=== PATIENT | male | born 1995 | race Caucasian/White ===

== ENCOUNTER 2018-03-23 22:02 | Emergency (ER) | payer OTHER ==
[2018-03-23 22:10] VITALS: BP 136/74
--- NOTE | 2018-03-23 22:26 | EDPHY ---
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 He reports that he felt some pain but continued to try to play. He started to bleed on his scalp so the referee made him come out of the game. He applied direct pressure and the bleeding stopped. Denies LOC/ head injury/neck pain/dizziness/nausea/vomiting/amnesia. No prior history of concussion. Drove himself to the emergency room. Ambulatory without deficits. Reports tetanus is current. Modifying Factors: See above Comment: ROS: see HPI Constitutional: No fever, no chills, no weight loss Eyes: No blurred vision Respiratory: No shortness of breath, no cough Cardiovascular: No chest pain Gastrointestinal: No nausea, no vomiting no diarrhea Genitourinary: No dysuria Extremities: No myalgias Neurologic: No weakness, no numbness Skin: No rashes Hematologic: No bruising, no bleeding MEDICAL/SURGICAL/SOCIAL HISTORY: Medical history: Generally healthy. Does not take any regular medications. Surgical history: Denies Social history: Local [employer] student. Family history noncontributory. Denies recreational drug use. CONSTITUTIONAL: Polite and cooperative, young adult white male, awake and alert , no obvious distress HEENT: 1.5 cm, linear, simple, deep laceration on the left parietal scalp, normocephalic, PERRL, EOMI. no globe entrapment, no raccoon eyes. no Hernández signs.Tympanic membranes clear. No tympanic membrane rupture. Nares patent; no septal hematoma. Oropharynx clear, no exudate and moist pink mucosa. No malocclusion. no dental trauma. Airway patent. No lymphadenopathy. NECK: supple, no midline tenderness, flexion 45 degrees, extension 45 degrees, right and left lateral flexion 45 degrees. No meningismus. Cardiovascular: Normal S1/S2, regular rate, regular rhythm, without murmur rub or gallop. PULMONARY/CHEST: Symmetrical and nontender. no crepitus. Clear to auscultation bilaterally. Good air movement. No accessory muscle usage. ABDOMEN: Soft, nondistended, nontender, no ecchymosis, no rebound, no guarding , no peritoneal signs, no masses or organomegaly. No CVAT. PELVIC: no pain with rocking; bilateral hips flexion 125 degrees, extension 30 degrees, with no pain internal rotation and no pain external rotation. BACK: No midline tenderness, no paraspinous spasm, deep tendon reflexes 2/2, no pain with straight leg raise EXTREMITIES: 2/2 pulses, no deformities, no clubbing, no cyanosis or edema. NEUROLOGICAL: no focal neuro deficits. GCS 15. SKIN: Warm and dry, no erythema. no rash. Good capillary refill. Source: Patient Exam Limitations: No limitations - Personal History Current Tetanus/Diphtheria Vaccine: Yes Current Tetanus Diphtheria and Acellular Pertussis (TDAP): Yes Tetanus Vaccine Date: 2013 - Medical/Surgical History Hx Asthma: No Hx Chronic Respiratory Disease: No Hx Diabetes: No Hx Cardiac Disease: No Hx Renal Disease: No Hx Cirrhosis: No Hx Alcoholism: No Hx HIV/AIDS: No Hx Splenectomy or Spleen Trauma: No Other PMH: bladder surgery - Social History Smoking Status: Current some day smoker Constitutional: Initial Vital Signs Temperature (C) 37.1 C 03/23/18 22:08 Heart Rate 84 03/23/18 22:08 Respiratory Rate 16 03/23/18 22:08 Blood Pressure 136/74 H 03/23/18 22:08 O2 Sat (%) 93 03/23/18 22:08 O2 Delivery Mode Room Air Allergies/Adverse Reactions: No Known Allergies Allergy (Verified 03/23/18 22:10) Home Medications: Medication Instructions Recorded NK [No Known Home Meds] 03/23/18 Medical Decision Making Procedures: Procedure: Laceration repair. Verbal consent was obtained from the patient. The 2.5 cm, linear, simple, deep , left parietal scalp was anesthetized in the usual fashion using 4 mL of 0.5% bupivacaine with epinephrine. The wound was irrigated, draped and explored to its base with a gloved finger. There were no deep structures involved. No tendon injury was identified. The wound was repaired with #4 ann marie. Good hemostasis achieved and patient tolerated procedure well. Bacitracin applied. The procedure was performed by myself. ED Course/Re-evaluation: Tetanus current. No LOC. No neurological deficits. No indication for head CT scan. Laceration repaired with 4 ann marie. Verbal and written wound care instructions provided. This patient was seen under the supervision of my secondary supervising physician. I evaluated care for this patient independently. Discussed this patient with Dr. Hadley who did not see the patient. Differential Diagnosis: Head injury including but not limited to concussion, skull fracture, intraparenchymal contusion, subarachnoid, subdural and epidural hematoma. Departure - Departure Disposition: Home, Routine, Self-Care Clinical Impression: Laceration of scalp without complication Qualifiers: Encounter type: initial encounter Qualified Code(s): S01.01XA - Laceration without foreign body of scalp, initial encounter Condition: Good Instructions: Head Injury (ED), Staple Care (ED), Facial Laceration (ED), Sports Concussion (ED) Additional Instructions: Please observe concussion precautions. After 48 hours, you may wash your hair and scalp daily with mild soap and water ; then pat dry. Take Tylenol 650 mg every 4 hours and/or Ibuprofen 600 mg every 8 hours with food as needed for pain. Apply ice for 30 minutes at a time; 2-3 times per day for the next 1-2 days. Wound Care Follow-Up: Removal of staple in [5] days. Staple removal is complimentary in uncomplicated cases. Infection or abnormal findings would require reevaluation by the MD. In that case, you may be billed. Return to the ER immediately if you have progressive headaches, neurologic deficits, gait abnormality, visual disturbance, slurred speech, or any other symptom that concerns you. Referrals: Michelle Wilson MD [Medical Doctor] - As per Instructions [facility],. [Clinic] - As per Instructions
== END 2018-03-23 23:05 | disposition home or self-care (01) ==
PROC: 0HQ0XZZ Repair Scalp Skin, External Approach (ICD-10-PCS; principal; 2018-03-23)
DX: S01.01XA Laceration without foreign body of scalp, initial encounter (principal); F17.200 Nicotine dependence, unspecified, uncomplicated; W21.02XA Struck by soccer ball, initial encounter; Y99.8 Other external cause status; Y93.66 Activity, soccer